=== PATIENT | male | born 1975 | race Caucasian/White ===

== ENCOUNTER 2017-09-09 19:55 | Emergency (ER) | payer MEDICAID ==
[~2017-09-09] VITALS: Ht 177.8 cm; Wt 74.8 kg
[~2017-09-09 19:55] MED LIST: AMOX500 PO; Bactrim Ds Tab1 EACH PO; CEPH500 PO; CYCL10 PO; DOXY100 PO; HYDACE5 PO; HYDGUAL120 PO; IBUP800 PO; MUPI2TO TOP; OXYACE5T PO; Percocet 5-3251 EACH PO; SILSUL1TC TOP; SULTRIDS PO
== END 2017-09-09 22:10 | disposition home or self-care (01) ==
LOC: ER 19:55
DX: M71.22 Synovial cyst of popliteal space [Baker], left knee (principal); F17.210 Nicotine dependence, cigarettes, uncomplicated; Z88.5 Allergy status to narcotic agent
CPT/HCPCS: 93971; 99283

== ENCOUNTER 2022-09-29 15:13 | Emergency (ER) | payer OTHER ==
[~2022-09-29] VITALS: Ht 177.8 cm; Wt 74.8 kg
[2022-09-29 15:22] VITALS: BP 170/99
== END 2022-09-29 17:07 | disposition home or self-care (01) ==
LOC: ER 15:13
DX: K40.30 Unilateral inguinal hernia, with obstruction, without gangrene, not specified as recurrent (principal); F17.210 Nicotine dependence, cigarettes, uncomplicated; Z88.5 Allergy status to narcotic agent
CPT/HCPCS: 93971; A9270

== ENCOUNTER 2024-06-02 01:25 | Observation (INO) | payer OTHER ==
[~2024-06-02] VITALS: Ht 177.8 cm; Wt 82.7 kg
[2024-06-02] MEDS ORDERED: Ondansetron HCl 2 MG / ML 2ML Vial IV PRN ×2 (01:35→05:40)
[2024-06-02] MEDS ORDERED: Ondansetron HCl 2 MG / ML 2ML Vial IV ONE (01:55)
[2024-06-02] MEDS ORDERED: LORazepam 2 MG/ML 1ML Injection IV ONE (01:55)
[2024-06-02] MEDS ORDERED: NS 1,000 ML IV SCH ×2 (01:55→06:15)
[2024-06-02 02:10] LABS: Albumin, Blood 4.7 g/dL (3.4-5.0); Albumin/Globulin Ratio 1.4 (0.8-1.8); BASOPHILS ABSOLUTE AUTO 0.14 K/mm3 (0.00-0.23); BASOPHILS PERCENT AUTO 1 % (0-2); Bilirubin, Total 0.9 mg/dL (0.1-1.0); Calcium, Blood 9.9 mg/dL (8.5-10.1); EOSINOPHILS ABSOLUTE AUTO 0.18 K/mm3 (0.00-0.68); EOSINOPHILS PERCENT AUTO 1 % (0-6); Globulin, Blood 3.4 g/dL (2.2-4.0); Hemoglobin 15.7 g/dL (13.5-17.5); IMMATURE GRAN ABSOLUTE AUTO 0.03 K/mm3 (0.00-0.10); IMMATURE GRAN PERCENT AUTO 0 % (0-1); LYMPHOCYTES ABSOLUTE AUTO 4.73 K/mm3 (0.84-5.20); LYMPHOCYTES PERCENT AUTO 37 % (21-46); MONOCYTES ABSOLUTE AUTO 1.17 K/mm3 (0.16-1.47); MONOCYTES PERCENT AUTO 9 % (4-13); Mean Corpuscular HGB 27.2 pg (26.0-34.0); Mean Corpuscular HGB Conc 34.1 g/dL (31.5-36.5); Mean Corpuscular Volume 80 fL (80-100); Mean Platelet Volume 9.3 fL (9.1-12.4); NEUTROPHILS ABSOLUTE AUTO 6.57 K/mm3 (1.96-9.15); NEUTROPHILS PERCENT AUTO 51 % (41-73); Platelet Count 393 K/mm3 (150-400); Potassium, Blood 3.7 mmol/L (3.5-5.5); RDW Coefficient Variation 13.4 % (11.7-14.2); RDW Standard Deviation 38.5 fL (35.1-46.3); Red Blood Cell Count 5.78 M/mm3 (4.30-5.90); Total Protein, Blood 8.1 g/dL (6.4-8.2); White Blood Cell Count 12.82 K/mm3 (4.00-11.30)
[2024-06-02] MEDS ORDERED: Morphine Sulfate 4 MG/1 ML Injection IV ONE (02:55)
[2024-06-02] MEDS ORDERED: Acetaminophen 325 MG TABLET PO PRN (05:40)
[2024-06-02] MEDS ORDERED: FLU VACC TS2024-25(6MOS UP)/PF 45 MCG/0.5 ML SYRINGE IM ONE (05:40)
[2024-06-02] MEDS ORDERED: Naloxone HCl 0.4MG / ML 1ML Vial IV PRN (05:40)
[2024-06-02] MEDS ORDERED: Morphine Sulfate 4 MG/1 ML Injection IV PRN (05:40)
[2024-06-02] MEDS ORDERED: Lactated Ringer's 1,000 ML IV SCH ×2 (06:00→08:00)
[2024-06-02] MEDS ORDERED: Docusate Sodium 100 MG Cap PO SCH (09:00)
[2024-06-02 11:24] VITALS: BP 186/120
[2024-06-02 11:58] VITALS: BP 192/124
[2024-06-02] MEDS ORDERED: HydrALAZINE HCl 20 MG / ML 1ML Vial IV PRN (12:05)
[2024-06-02 13:01] VITALS: BP 175/94
[2024-06-02] MEDS ORDERED: CefOXitin Sodium 2,000 MG in NS 50 ML IV SCH (14:00)
--- NOTE | 2024-06-02 15:09 | NUR ---
ASSUMED CARE OF PT. PT IS A/O, WITH VERY ELEVATED BLOOD PRESSURE, PT MEDICATED FOR PAIN AND ALLOWED TO REST BEFORE VS RECHECKED. 1145 PT HYPERTENSIVE, AND IN A CALM RELAXED STATED. DR DANIEL WAS NOTIFIED AND WAS MEDICATED FOR PRN HTN MEDS. AT BEDSIDE TO ASSIST WITH ADMISSION.
--- NOTE | 2024-06-02 15:13 | NUR ---
1400 DR PRATT IN WITH PT CONSULT FOR SX. SX PLAN FOR TOMORROW MORNING, CLR LIQUIDS ORDERED FOR PT.
[2024-06-02 15:17] VITALS: BP 152/94
--- NOTE | 2024-06-02 19:13 | NUR ---
no significant change, pain has decreased and hasnt needed any medication.
[2024-06-02 19:25] VITALS: BP 146/104
[2024-06-03] VITALS (9 sets, daily range): BP systolic 99–144; BP diastolic 64–91
--- NOTE | 2024-06-03 04:13 | NUR ---
SHIFT SUMMARY PATIENT HAD NO ACUTE CHANGES. ALERT, ORIENTED, AND INDEPENDENT IN ROOM. NPO FOR PROCEDURE. PIV INTACT. IV ABX INFUSED. LR INFUSING @ 125 mL/HR. DENIES CHEST PAIN, SOB, AND N/V. VSS/AFEBRILE. REFUSED PAIN MEDS AT THIS TIME. CALL LIGHT IN REACH. BED IN LOWEST POSITION. WILL CONTINUE TO MONITOR UNTIL DAY SHIFT NURSE ASSUMES CARE.
[2024-06-03 06:10] LABS: BASOPHILS ABSOLUTE AUTO 0.08 K/mm3 (0.00-0.23); BASOPHILS PERCENT AUTO 1 % (0-2); EOSINOPHILS ABSOLUTE AUTO 0.22 K/mm3 (0.00-0.68); EOSINOPHILS PERCENT AUTO 2 % (0-6); Hematocrit 43.2 % (37.0-53.0); Hemoglobin 14.9 g/dL (13.5-17.5); IMMATURE GRAN ABSOLUTE AUTO 0.04 K/mm3 (0.00-0.10); IMMATURE GRAN PERCENT AUTO 0 % (0-1); LYMPHOCYTES ABSOLUTE AUTO 3.42 K/mm3 (0.84-5.20); LYMPHOCYTES PERCENT AUTO 24 % (21-46); MONOCYTES ABSOLUTE AUTO 1.46 K/mm3 (0.16-1.47); MONOCYTES PERCENT AUTO 10 % (4-13); Mean Corpuscular HGB 27.5 pg (26.0-34.0); Mean Corpuscular HGB Conc 34.5 g/dL (31.5-36.5); Mean Corpuscular Volume 80 fL (80-100); Mean Platelet Volume 9.2 fL (9.1-12.4); NEUTROPHILS ABSOLUTE AUTO 8.81 K/mm3 (1.96-9.15); NEUTROPHILS PERCENT AUTO 63 % (41-73); Platelet Count 328 K/mm3 (150-400); RDW Coefficient Variation 13.8 % (11.7-14.2); RDW Standard Deviation 39.8 fL (35.1-46.3); Red Blood Cell Count 5.42 M/mm3 (4.30-5.90); White Blood Cell Count 14.03 K/mm3 (4.00-11.30)
[2024-06-03 06:45] LABS: Albumin, Blood 3.5 g/dL (3.4-5.0); Albumin/Globulin Ratio 1.1 (0.8-1.8); Bilirubin, Total 1.3 mg/dL (0.1-1.0); Bun/Creatinine Ratio 14.3 (12.0-20.0); Creatinine, Blood 0.84 mg/dL (0.60-1.20); Globulin, Blood 3.2 g/dL (2.2-4.0); Magnesium, Blood 1.9 mg/dL (1.6-2.4); Potassium, Blood 3.5 mmol/L (3.5-5.5); Total Protein, Blood 6.7 g/dL (6.4-8.2)
[2024-06-03] MEDS ORDERED: Indocyanine Green 25 MG Vial IV ONE (09:25)
[2024-06-03] MEDS ORDERED: Bupivacaine 0.5% W/EPI 1:200000 SDV 30 ML Vial ONE (14:02)
[2024-06-03] MEDS ORDERED: Midazolam HCl 1MG / ML 2ML Vial ONE (14:21)
[2024-06-03] MEDS ORDERED: propofoL 20 ML IV ONE ×2 (14:33→15:30)
[2024-06-03] MEDS ORDERED: FentaNYL Citrate 50 MCG/ML 2 ML Injection ONE ×2 (14:33→14:58)
[2024-06-03] MEDS ORDERED: OxyCODONE HCL 5 MG TAB PO PRN (14:35)
[2024-06-03] MEDS ORDERED: Dexamethasone Sod Phos 10 MG/ML 1ML VIAL ONE (14:42)
[2024-06-03] MEDS ORDERED: Ondansetron HCl 2 MG / ML 2ML Vial ONE (14:42)
[2024-06-03] MEDS ORDERED: Labetalol HCL 5 MG/ML 4ML Injection (Single Dose) ONE (15:10)
[2024-06-03] MEDS ORDERED: Ketorolac Tromethamine 30mg Vial ONE (15:22)
[2024-06-03] MEDS ORDERED: Sugammadex Sodium 200 MG/2ML SDV (100 MG/ML) ONE (15:31)
--- NOTE | 2024-06-03 18:09 | NUR ---
assumed care of pt. pt a/o and is anxious about SX, pt wants us to hurry but I explained i had no control of Surgery schedule. mother came to sit with pt and he agreed to stay. 0930 iodine type of tracer given IVP for SX, pt benedicto well. 1400 pt taken for sx. pt retuned at 1700 with discharge orders. iv dced, pt pain free, instructions given.,
== END 2024-06-03 17:21 | disposition home or self-care (01) ==
LOC: ER 01:25 → ERHOLD 01:27 → MEDS 01:27
PROVIDERS: Emergency Medicine; Surgery; ADMIT Student in an Organized Health Care Education/Training Program
PROC: 0FT44ZZ Resection of Gallbladder, Percutaneous Endoscopic Approach (ICD-10-PCS; principal; 2024-06-03 12:30)
PROC: 8E0W4CZ Robotic Assisted Procedure of Trunk Region, Percutaneous Endoscopic Approach (ICD-10-PCS; principal; 2024-06-03 12:30)
DX: K80.12 Calculus of gallbladder with acute and chronic cholecystitis without obstruction (principal); K85.10 Biliary acute pancreatitis without necrosis or infection; F17.210 Nicotine dependence, cigarettes, uncomplicated; Z88.8 Allergy status to other drugs, medicaments and biological substances
CPT/HCPCS: 36415; 71046; 74177; 76705; 80053; 83690; 83735; 83880; 84484; 85025; 88304; 93005; 93010; 93306; 94762; 96361; 96365; 96366; 96374-59; 96375; 96376; 99285-25; A9270; G0378; J0360; J0694; J1100; J1885; J2060; J2250; J2270; J2405; J2704; J3010; J7030; J7120; Q9967

== ENCOUNTER 2024-12-22 21:21 | Emergency (ER) | payer OTHER ==
[~2024-12-22] VITALS: Ht 167.6 cm; Wt 81.7 kg
[2024-12-22 23:15] LABS: BASOPHILS ABSOLUTE AUTO 0.09 K/mm3 (0.00-0.23); BASOPHILS PERCENT AUTO 1 % (0-2); EOSINOPHILS ABSOLUTE AUTO 0.26 K/mm3 (0.00-0.68); EOSINOPHILS PERCENT AUTO 2 % (0-6); Hematocrit 40.4 % (37.0-53.0); Hemoglobin 14.0 g/dL (13.5-17.5); IMMATURE GRAN ABSOLUTE AUTO 0.04 K/mm3 (0.00-0.10); IMMATURE GRAN PERCENT AUTO 0 % (0-1); LYMPHOCYTES ABSOLUTE AUTO 3.77 K/mm3 (0.84-5.20); LYMPHOCYTES PERCENT AUTO 27 % (21-46); MONOCYTES ABSOLUTE AUTO 1.12 K/mm3 (0.16-1.47); MONOCYTES PERCENT AUTO 8 % (4-13); Mean Corpuscular HGB Conc 34.7 g/dL (31.5-36.5); Mean Corpuscular Volume 81 fL (80-100); NEUTROPHILS ABSOLUTE AUTO 8.74 K/mm3 (1.96-9.15); NEUTROPHILS PERCENT AUTO 62 % (41-73); NRBC ABSOLUTE 0.00 K/mm3 (0.00-0.02); NRBC Auto 0.0 /100 WBC (0.0-0.2); Platelet Count 329 K/mm3 (150-400); RDW Coefficient Variation 13.1 % (11.7-14.2); RDW Standard Deviation 38.4 fL (35.1-46.3)
[2024-12-22 23:35] LABS: Alanine Aminotransfer (ALT/SGP 18.0 U/L (12-78); Albumin, Blood 3.7 g/dL (3.4-5.0); Albumin/Globulin Ratio 1.1 (0.8-1.8); Anion Gap 9.0 mmol/L (3-11); Aspartate Aminotrans (AST/SGOT 18.0 U/L (12-37); Bilirubin, Total 0.8 mg/dL (0.1-1.0); Blood Urea Nitrogen 15.0 mg/dL (8-24); CO2, Blood 26.0 mmol/L (21-32); Calcium, Blood 8.6 mg/dL (8.5-10.1); Chloride, Blood 106.0 mmol/L (98-108); Creatinine, Blood 0.99 mg/dL (0.60-1.20); Globulin, Blood 3.4 g/dL (2.2-4.0); Glucose, Blood 91.0 mg/dL (70-99); Potassium, Blood 3.5 mmol/L (3.5-5.5); Sodium, Blood 137.0 mmol/L (136-145); Total Protein, Blood 7.1 g/dL (6.4-8.2)
[2024-12-23] MEDS ORDERED: Ketorolac Tromethamine 15mg Vial IV ONE (00:15)
[2024-12-23] MEDS ORDERED: NS 1,000 ML IV SCH (00:20)
[2024-12-23 01:30] VITALS: BP 149/112
[2024-12-23 01:58] LABS: Source, Urine Clean Catch
[2024-12-23 02:04] LABS: Bilirubin, Urine Neg (Neg); Glucose Qualitative, Urine Neg (Neg); Ketones, Urine Neg (Neg); Leukocyte Esterase, Urine 1+ (Neg); Protein, Urine 1+ (Neg); Specific Gravity, Urine 1.010 (1.003-1.022); Urobilinogen, Urine NORM (Normal)
[2024-12-23 02:06] LABS: Color, Urine Yellow (P-Yellow)
[2024-12-23 02:15] LABS: White Blood Cells, Urine 0-2 /hpf (0-5)
[2024-12-23] MEDS ORDERED: TAMS.4ER PO (02:43)
[2024-12-23] MEDS ORDERED: RX Prepack 2 Tabs Ondansetron ODT 4MG UD ONE (02:45)
[2024-12-23] MEDS ORDERED: RX Prepack 6 Tabs Oxycodone 5mg UD ONE (02:45)
== END 2024-12-23 03:09 | disposition home or self-care (01) ==
LOC: ER 21:21
PROVIDERS: Student in an Organized Health Care Education/Training Program
DX: N13.2 Hydronephrosis with renal and ureteral calculous obstruction (principal); Z88.5 Allergy status to narcotic agent; F17.210 Nicotine dependence, cigarettes, uncomplicated; Z59.89 Other problems related to housing and economic circumstances
CPT/HCPCS: 74177; 80053; 81001; 83690; 85025; 96361; 96374; 99284-25; A9270; J1885; J7030; Q9967